=== PATIENT | male | born 1995 ===

== ENCOUNTER 2018-05-19 20:47 | Emergency (ER) | payer OTHER ==
[2018-05-19 21:07] VITALS: BP 120/59
[2018-05-19] MEDS ORDERED: Ibuprofen TAB* 400 MG PO ONE (21:15)
[2018-05-19] MEDS ORDERED: Cyclobenzaprine TAB* 10 MG PO ONE (21:16)
--- NOTE | 2018-05-19 21:21 | ED ---
Back Pain - HPI Summary HPI Summary: 22 yr old male with the complaint of low back pain. Onset of pain just prior to coming here. He was doing T bar rowing exercises at gym with 90 pounds total. He was keeping his back straight and only pulling with the arms. He felt a pop, tear in low back, mostly to the sides of low lumbar spine. Pain is moderate, somewhat worse with bending over. He can stand up well, and walk without issue. Denies numbness, weakness in legs. No bowel or bladder incontinence. - History of Current Complaint Chief Complaint: UCBackPain Stated Complaint: LOW BACK PAIN Time Seen by Provider: 05/19/18 21:05 Pain Intensity: 6 - Allergies/Home Medications Allergies/Adverse Reactions: Allergies Allergy/AdvReac Type Severity Reaction Status Date / Time No Known Allergies Allergy Verified 05/19/18 21:07 PMH/Surg Hx/FS Hx/Imm Hx Infectious Disease History: No Infectious Disease History: Denies: Traveled Outside the [place] in Last 30 Days - Family History Known Family History: Positive: None - Social History Occupation: Student Alcohol Use: Occasionally Alcohol Amount: weekends Substance Use Type: Reports: Marijuana Substance Use Comment - Amount & Last Used: nightly Smoking Status (MU): Never Smoked Tobacco Review of Systems Constitutional: Negative Positive: Other - low back pain Neurological: Negative All Other Systems Reviewed And Are Negative: Yes Physical Exam Triage Information Reviewed: Yes Vital Signs On Initial Exam: Initial Vitals Temp Pulse Resp BP Pulse Ox 98.8 F 66 16 120/59 99 05/19/18 21:00 05/19/18 21:00 05/19/18 21:00 05/19/18 21:00 05/19/18 21:00 Vital Signs Reviewed: Yes Appearance: Positive: Well-Appearing, No Pain Distress Skin: Positive: Warm, Skin Color Reflects Adequate Perfusion Head/Face: Positive: Normal Head/Face Inspection Eyes: Positive: EOMI ENT: Positive: Normal ENT inspection Neck: Positive: Supple, Nontender Respiratory/Lung Sounds: Positive: Clear to Auscultation, Breath Sounds Present Cardiovascular: Positive: RRR. Negative: Murmur Abdomen Description: Positive: Nontender. Negative: Distended Musculoskeletal: Positive: Other - minimal low lumbar tenderness, no bruise, some paraspinal tenderness low lumbar. Neurological: Positive: Sensory/Motor Intact, Alert, Oriented to Person Place, Time, CN Intact II-III, Normal Gait, Speech Normal - Chuck Coma Scale Best Eye Response: 4 - Spontaneous Best Motor Response: 6 - Obeys Commands Best Verbal Response: 5 - Oriented Coma Scale Total: 15 Diagnostics - Vital Signs Vital Signs Temp Pulse Resp BP Pulse Ox 05/19/18 21:00 98.8 F 66 16 120/59 99 - Laboratory Lab Statement: Any lab studies that have been ordered have been reviewed, and results considered in the medical decision making process. - Radiology lumbar spine Xray Interpretation: No Acute Changes Radiology Interpretation Completed By: ED Physician - final read pend Back Pain Course/Dx - Course Course Of Treatment: 22 yr old with lumbar strain. Final read pending per rad. Flexeril and motrin script. - Diagnoses Provider Diagnoses: Lumbar strain Discharge - Sign-Out/Discharge Documenting (check all that apply): Patient Departure All imaging exams completed and their final reports reviewed: No - Discharge Plan Condition: Good Disposition: HOME Prescriptions: Cyclobenzaprine TAB* [Flexeril 10 MG TAB*] 10 mg PO BID PRN #10 tab PRN Reason: Pain Ibuprofen TAB* [Motrin TAB* 600 MG] 600 mg PO Q8H PRN #20 tab PRN Reason: Pain Patient Education Materials: Low Back Strain (ED) Referrals: No Primary Care Phys,NOPCP [Primary Care Provider] - [facility] [Outside] - 2 Days Boni Vital MD [Medical Doctor] - 2 Days - Billing Disposition and Condition Condition: GOOD Disposition: Home
--- NOTE | 2018-05-20 08:11 | RAD ---
Indication: Low back pain. 5 views of the lumbar spine are reviewed. The vertebral bodies appear normal in height. Disc spaces all well-preserved. Pedicles appear intact. IMPRESSION: Unremarkable lumbar spine. R0
--- NOTE | 2018-05-21 12:00 | UC ---
- Progress Note Progress Note: Patient Name: CHERYL CARDONA Medical Record#: [id number] Ordering Physician: Nikhil Lay MD Acct.#: [id number] : 1995 Age: 22 Sex: M Location: [facility] Exam Date: 05/19/182114 ADM Status: DEP ER Order Information: SP LUMBARSACRAL 4+ VWS Accession Number: [id number] CPT: 14743 Indication: Low back pain. 5 views of the lumbar spine are reviewed. The vertebral bodies appear normal in height. Disc spaces all well-preserved. Pedicles appear intact. IMPRESSION: Unremarkable lumbar spine. R0 <Electronically signed by Hannah Barnett MD in OV> 05/20/18806 Dictated By: Hannah Barnett MD Dictated Date/Time: 05/20/18806 Transcribed Date/Time: 05/20/18806 Copy to: CC:No Primary Care Phys,NOPCP; Nikhil Lay MD Imaging - [facility] Imaging [facility] Urgent [facility] [address] [address] ph ([phone]) ph ([phone]) ph ([phone]) This report is only to be considered final once signed by the Provider(s) as displayed in the "<Electronically Signed by >" field (s). Absence of a signature indicates the report is in a draft status and still needs to be finalized. In the event this document was created by someone other than the signing Provider, the individual initiating the document will be listed in the "Entered by:" or "Dictated by:" meza. 1 of 1 Course/Dx - Diagnoses Provider Diagnoses: Lumbar strain Discharge - Sign-Out/Discharge Documenting (check all that apply): Post-Discharge Follow Up All imaging exams completed and their final reports reviewed: Yes - Discharge Plan Condition: Good Disposition: HOME Prescriptions: Cyclobenzaprine TAB* [Flexeril 10 MG TAB*] 10 mg PO BID PRN #10 tab PRN Reason: Pain Ibuprofen TAB* [Motrin TAB* 600 MG] 600 mg PO Q8H PRN #20 tab PRN Reason: Pain Patient Education Materials: Low Back Strain (ED) Referrals: [facility] [Outside] - 2 Days Boni Vital MD [Medical Doctor] - 2 Days No Primary Care Phys,NOPCP [Primary Care Provider] - - Billing Disposition and Condition Condition: GOOD Disposition: Home
== END 2018-05-19 21:42 | disposition home or self-care (01) ==
LOC: UCCORT 20:47
DX: S39.012A Strain of muscle, fascia and tendon of lower back, initial encounter (principal); X50.0XXA Overexertion from strenuous movement or load, initial encounter; Y93.B1 Activity, exercise machines primarily for muscle strengthening; Y92.9 Unspecified place or not applicable
CPT/HCPCS: 72110; 99202; A9270-GY; G0463